=== PATIENT | female | born 1990 | race Caucasian/White ===

== ENCOUNTER → 2016-08-06 | Outpatient (CLI) | payer OTHER ==
[~2016-08-06] MED LIST: HAIR, SKIN & N1 EAC1 PO
--- NOTE | ~2016-08-06 | CR97 ---
[facility] A Service [facility] RADIOLOGY TEXT RESULTS PATIENT: SALOME VELARDE LOCATION: [facility] : 89 UNIT #: [id number] AGE: [address]: Augustus Arreguin III, MD SEX: F ORDER DR: [id number] [place] [id number] [facility]. [place], [place] [address] [id number] O MR#: [id number] Acc #: [id number] NAME: SALOME VELARDE : 1990 SEX: F STUDY DATE/TIME: 08/06/2016 10:07 UNIT: [facility] ROOM: STUDY DESCRIPTION: CR Esophagram Attending Physician: Augustus Arreguin III, M.D. Referring Physician: Augustus Arreguin III, M.D. Ordering Physician: Augustus Arreguin III, M.D. Primary Care Physician: Chely Nathan MEDICAL IMAGING REPORT This report is preliminary unless electronic signature is present EXAM Fluoroscopic esophagram. DATE OF EXAM 08/06/2016 COMPARISON 2 views of the chest on the same date. INDICATION 25-year-old female with obesity. Preoperative evaluation prior to gastric Lap-Band surgery. Evaluation for paraesophageal hernia. FINDINGS Total fluoro time was 0.9 minutes. A total of 87 images were obtained. Imaging of the esophagus was performed at 3 frames per second after oral administration of barium. Cholecystectomy clips are noted in the right upper quadrant the abdomen. There is normal peristaltic activity of the esophagus. No evidence of mucosal lesion or stricture. No extrinsic mass effect. There is no evidence of hiatal hernia. No gastroesophageal reflux is seen on the exam. IMPRESSION 1. Normal esophagram. 2. No evidence of hiatal hernia or gastroesophageal reflux. Dictated by... Boo Padilla M.D. THIS IS AN ELECTRONICALLY VERIFIED REPORT Boo Padilla M.D. at 08/08/2016 7:17 PM BLM/jt [facility] A Service of [facility] RADIOLOGY TEXT RESULTS PATIENT: SALOME VELARDE LOCATION: [facility] : 89 UNIT #: [id number] AGE: [address]: Augustus Arreguin III, MD SEX: F ORDER DR: TD: 08/06/2016 19:24 JOB #: [id number] MEDICAL IMAGING REPORT COPY
--- NOTE | ~2016-08-06 | EKG ---
PATIENT: SALOME VELARDE UNIT #: [id number] Ventricular Rate: 75 BPM Atrial Rate: 75 BPM P-R Interval: 168 ms QRS Duration: 84 ms Q-T Interval: 374 ms QTC Calculation(Bezet): 417 ms P [place]: 14 degrees Calculated R [place]: 22 degrees Calculated T [place]: 25 degrees Diagnosis Line: Normal sinus rhythm Diagnosis Line: Normal ECG Diagnosis Line: No previous ECGs available Diagnosis Line: Confirmed by AL SPANGLER MD ([id number]) on Diagnosis Line: 08/08/2016 11:58:48 PM INTERPRETING MD: CRYS ARANGO
--- NOTE | ~2016-08-06 | CR63 ---
[facility] A Service of [facility] RADIOLOGY TEXT RESULTS PATIENT: SALOME VELARDE LOCATION: [facility] : 89 UNIT #: [id number] AGE: [address]: Augustus Arreguin III, MD SEX: F ORDER DR: [id number] [facility] [address]. [place], [place] [address] [id number] O MR#: [id number] Acc #: [id number] NAME: SALOME VELARDE : 1990 SEX: F STUDY DATE/TIME: 08/06/2016 8:01 UNIT: [facility] ROOM: STUDY DESCRIPTION: CR Chest 2 View Attending Physician: Augustus Arreguin III, M.D. Referring Physician: Augustus Arreguin III, M.D. Ordering Physician: Augustus Arreguin III, M.D. Primary Care Physician: Chely Nathan MEDICAL IMAGING REPORT This report is preliminary unless electronic signature is present EXAM PA and lateral chest INDICATIONS 25-year-old female preop lap band surgery. No comparisons. FINDINGS Lungs are well expanded and clear. Heart size upper normal. Visualized osseous structures unremarkable. IMPRESSION Negative chest. Dictated by... Chivo Mota M.D. THIS IS AN ELECTRONICALLY VERIFIED REPORT Chivo Mota M.D. at 08/06/2016 5:06 PM ADRIENNE/francesco TD: 08/06/2016 10:48 JOB #: [id number] MEDICAL IMAGING REPORT COPY
[2016-08-06 09:36] LABS: HEMATOCRIT 40.6 % (35.0-45.0); HEMOGLOBIN 13.4 gm/dL (12.0-16.0); MEAN CELL VOLUME 85.2 FL (83-96); MEAN CORPUSCULAR HEMOGLOBIN 28.1 PG (28-34); MEAN PLATELET VOLUME 8.1 FL (6.5-11.5); RED BLOOD COUNT 4.76 X10e (3.90-5.30); RED CELL DISTRIBUTION WIDTH 14.1 % (11.0-15.5); WHITE BLOOD COUNT 9.1 X10e3 (4.0-10.5)
[2016-08-06 10:46] LABS: ALBUMIN SERUM 4.1 g/dL (3.5-5.0); ALKALINE PHOSPHATASE 56 U/L (32-92); ALT (SGPT) 18 U/L (10-40); AST (SGOT) 17 U/L (10-42); BILIRUBIN,TOTAL 0.7 mg/dL (0.2-2.0); BLOOD UREA NITROGEN 9 mg/dL (9-23); BUN/CREATININE RATIO 12.85; CALCIUM SERUM 9.4 mg/dL (8.4-10.2); CARBON DIOXIDE 28 mmol/L (22-31); CHLORIDE 102 mmol/L (100-111); CHOLESTEROL 145 mg/dL (0-200); CREATININE SERUM 0.7 mg/dL (0.6-1.4); GLOM FILT RATE Estimated ABOVE60 mL/min (>60); GLUCOSE FASTING 83 mg/dL (70-110); HDL CHOLESTEROL 63 mg/dL (35-95); LDL CHOLESTEROL 73 mg/dL (-130); LDL/HDL RATIO 1 RATIO (0-4); POTASSIUM 4.6 mmol/L (3.5-5.1); PROTEIN TOTAL SERUM 7.4 g/dL (6.0-8.3); SODIUM 137 mmol/L (135-145); TRIGLYCERIDES 47 mg/dL (10-160)
== END | disposition home or self-care (01) ==
LOC: CRAD 07:46
PROVIDERS: Surgery
DX: Z01.818 Encounter for other preprocedural examination (principal); E66.9 Obesity, unspecified
CPT/HCPCS: 36415; 71020; 74220; 80053; 80061; 84443; 85027; 93005

== ENCOUNTER → 2016-08-18 | Day surgery (SDC) | payer OTHER ==
--- NOTE | ~2016-08-18 | CR7 ---
[facility] A Service of [facility] & [facility] RADIOLOGY TEXT RESULTS PATIENT: SALOME VELARDE LOCATION: [facility] : 89 UNIT #: [id number] AGE: [address]: Augustus Arreguin III, MD SEX: F ORDER DR: [id number] [facility] [address] [facility] [place], [place] [address] [id number] O MR#: [id number] Acc #: [id number] NAME: SALOME VELARDE : 1990 SEX: F STUDY DATE/TIME: 08/18/2016 8:54 UNIT: [facility] ROOM: STUDY DESCRIPTION: CR Abdomen Single AP View Attending Physician: Augustus Arreguin III, M.D. Ordering Physician: Augustus Arreguin III, M.D. Primary Care Physician: Chely Nathan MEDICAL IMAGING REPORT This report is preliminary unless electronic signature is present EXAM Abdomen one-view 08/18/2016, 09:03 hours. HISTORY 25-year-old with morbid obesity, postop lap-band placement today. Patient complains of abdominal pain. COMPARISON Preop esophagram 08/06/2016. FINDINGS Single supine view of the abdomen excludes the right flank and the lower pelvis. There is a lap-band present overlying the left aspect of the T10 costovertebral articulation oriented at 68 degrees from vertical. Radiopaque tubing courses inferiorly and rightward with port overlying the midline L4-L5 disc space level. Visualized bowel gas pattern is unremarkable. There is mild atelectasis at the left lung base. IMPRESSION New lap band overlies the left T10 costovertebral junction, oriented at 68 degrees from vertical. Radiopaque tubing courses inferiorly to a port terminating in the midline over the L4-L5 disc space level. Visualized bowel gas pattern is unremarkable. There is mild atelectasis at the left base. Dictated by... Vashti Woodall M.D. THIS IS AN ELECTRONICALLY VERIFIED REPORT Vashti Woodall M.D. at 08/19/2016 9:21 AM SMM/gz TD: 08/18/2016 14:52 [facility] A Service of [facility] & [facility] RADIOLOGY TEXT RESULTS PATIENT: SALOME VELARDE LOCATION: [facility] : 89 UNIT #: [id number] AGE: [address]: Augustus Arreguin III, MD SEX: F ORDER DR: JOB #: [id number] MEDICAL IMAGING REPORT Page 1 of 1 COPY
--- NOTE | ~2016-08-18 | OR ---
Unit #: [id number] #: [id number] Patient: SALOME VELARDE [id number] [facility] [address] [facility]. [place], [place] [address] [id number] O MR#: [id number] NAME: SALOME VELARDE ROOM: Date of Procedure: 08/18/2016 Admission Date: 08/18/2016 Surgeon: Augustus Arreguin III, M.D. : 1990 Attending Physician: Augustus Arreguin III, M.D. Primary Care Physician: Chely Nathan OPERATIVE REPORT PREOPERATIVE DIAGNOSIS Chronic morbid obesity. POSTOPERATIVE DIAGNOSIS Chronic morbid obesity. SECONDARY DIAGNOSIS Anterior paraesophageal hernia. PROCEDURE PERFORMED Laparoscopic adjustable gastric banding (AP standard with low-profile port) and laparoscopic paraesophageal hernia repair. [employer] Dawson Jeff M.D. SPECIMENS None. COMPLICATIONS None apparent. ESTIMATED BLOOD LOSS Minimal. ANESTHESIA General endotracheal tube anesthesia. INDICATIONS FOR PROCEDURE This is a 25-year-old lady, who has chronic morbid obesity with a BMI of 41. She has been through the bariatric program at [facility] and understands the risks and benefits of the procedure. DESCRIPTION OF PROCEDURE After consent was obtained, including the risks and benefits of slippage, erosion, port dysfunction, and possible failure of weight loss due to noncompliance, the patient was taken to the operating room and placed in the supine position. General anesthetic was administered and the abdomen was prepped and draped in standard surgical fashion. I began by making a 2 cm incision just above and to the left of the umbilicus. I used a Visiport to enter the peritoneal cavity without any Unit #: [id number] #: [id number] Patient: SALOME VELARDE difficulty. C02 pneumoperitoneum was then established. Next, I placed a 5 mm port in the right upper quadrant, a 5 mm Chelsea liver retractor in the subxiphoid region to provide exposure of the gastroesophageal junction. Next, a 10 mm port was placed in the left upper quadrant and a 5 mm port was placed in the left lateral subcostal region. I began by performing an examination of the GE junction to evaluate for a hiatal hernia. We then scored the peritoneal attachments overlying the angle of His. I then opened up the clear space in the gastrohepatic ligament, and then using 2 blunt graspers, I identified the small fat pad crossing over the right crura. I swept the fat anterior to the crura off the crura and using the pars flaccida, I created a retrogastric tunnel where the blunt grasper exited at the angle of His. Once I had made this tunnel safely, I then inserted an Allergan AP band into the abdominal cavity. This adjustable gastric band was then place around the upper part of the stomach and fastened and buckled anteriorly. We then tacked the lateral fundus over the band to the proximal pouch with 2 interrupted 0 Ethibond sutures. I then used a third stitch to imbricate the excess anterior stomach by going from the lesser curvature up towards where the last stitch was placed. We then had excellent hemostasis. I removed the Chelsea liver retractor. We then removed the port tubing through the initial port incision. The rest of the ports were removed, and the pneumoperitoneum was released. I then left a small tail on the tubing. We then attached the port to the excess band tubing. We placed a piece of Prolene mesh along the back side of the port and used a Prolene stitch to anchor this mesh in place. We then trimmed the excess mesh so that just a small footprint of mesh was in place behind the port. I then inserted the tubing back into the abdominal cavity, and we placed the port into a small pocket that was made just inferior to where our initial port incision was made. The mesh was in direct contact with the fascia, and this will scar in place to hold the port in place. We then injected all the port sites with 0.25% plain Marcaine, and I reapproximated the skin edges with interrupted 4-0 Vicryl subcuticular sutures. Steri-strips were then applied. The patient tolerated the procedure without any problems and returned to the recovery room in stable condition. After exposure of the GE junction, the patient was noted to have a small to medium size anterior paraesophageal hernia. I scored the phrenoesophageal ligament, reduced the hernia defect and after identifying both the right and left crura, I reapproximated the defect with an interrupted 0 Ethibond [id number] suture. I then proceeded with the case as listed above. Dictated by... Augustus Arreguin III, M.D. VCL/sherrie TD: 08/20/2016 02:20 JOB #: [id number] Unit #: [id number] #: [id number] Patient: SALOME VELARDE OPERATIVE REPORT Page 1 of 1 X Augustus Arreguin III, MD PROCEDURE OPERATIVE NOTE
== END | disposition home or self-care (01) ==
LOC: CSUR 05:58
DX: E66.01 Morbid (severe) obesity due to excess calories (principal); Z68.41 Body mass index [BMI] 40.0-44.9, adult; K44.9 Diaphragmatic hernia without obstruction or gangrene; Z83.3 Family history of diabetes mellitus; Z80.3 Family history of malignant neoplasm of breast; Z82.3 Family history of stroke
CPT/HCPCS: 74000; 84703; C1781; J0330; J0690; J1650; J1885; J2250; J2405; J2710; J3010

== ENCOUNTER → 2016-11-04 | Outpatient (CLI) | payer SELFPAY | END | disposition home or self-care (01) | LOC: CBAR 09:16 | DX: E66.01 Morbid (severe) obesity due to excess calories (principal) | CPT/HCPCS: 76000 ==

== ENCOUNTER → 2016-12-15 | Outpatient (CLI) | payer SELFPAY | END | disposition home or self-care (01) | LOC: CBAR 09:50 | DX: E66.01 Morbid (severe) obesity due to excess calories (principal) | CPT/HCPCS: 76000 ==